=== PATIENT | male | born 1990 | race Caucasian/White ===

== ENCOUNTER 2017-01-16 16:41 | Emergency (ER) | payer MEDICAID ==
[~2017-01-16] VITALS: Ht 177.8 cm; Wt 79.0 kg
[2017-01-16 16:47] VITALS: BP 145/84
== END 2017-01-16 17:40 | disposition left against medical advice (07) ==
LOC: ER 16:41
DX: R07.81 Pleurodynia (principal); Z53.21 Procedure and treatment not carried out due to patient leaving prior to being seen by health care provider

== ENCOUNTER 2017-02-08 15:44 | Emergency (ER) | payer MEDICAID ==
[~2017-02-08] VITALS: Ht 175.3 cm; Wt 86.0 kg
[2017-02-08] MEDS ORDERED: METHYLPREDNISOLONE 4MG TABLET PO ONE (16:15)
[2017-02-08] MEDS ORDERED: DIPHENHYDRAMINE 50MG/ML VIAL IV ONE (16:15)
[2017-02-08 17:00] VITALS: BP 137/87
== END 2017-02-08 18:08 | disposition home or self-care (01) ==
LOC: ER 15:44
DX: T78.2XXA Anaphylactic shock, unspecified, initial encounter (principal); T63.441A Toxic effect of venom of bees, accidental (unintentional), initial encounter; Y92.89 Other specified places as the place of occurrence of the external cause
CPT/HCPCS: 96374; 99284; J1200; Z7610; J7509

== ENCOUNTER 2018-08-27 10:34 | Emergency (ER) | payer MEDICAID ==
[~2018-08-27] VITALS: Ht 177.8 cm; Wt 86.0 kg
[2018-08-27 11:26] VITALS: BP 134/79
== END 2018-08-27 14:59 | disposition left against medical advice (07) ==
LOC: ER 10:34
DX: R07.0 Pain in throat (principal); Z53.21 Procedure and treatment not carried out due to patient leaving prior to being seen by health care provider

== ENCOUNTER 2018-09-06 00:15 | Emergency (ER) | payer MEDICAID ==
[~2018-09-06] VITALS: Ht 177.8 cm; Wt 86.2 kg
[2018-09-06 05:05] VITALS: BP 138/70
== END 2018-09-06 05:16 | disposition home or self-care (01) ==
LOC: ER 00:15
DX: J06.9 Acute upper respiratory infection, unspecified (principal); B35.4 Tinea corporis; Z91.030 Bee allergy status
CPT/HCPCS: 71045; 99283

== ENCOUNTER 2019-04-02 22:59 | Emergency (ER) | payer MEDICAID | END 2019-04-03 00:06 | disposition left against medical advice (07) | LOC: ER 22:59 | DX: Z53.21 Procedure and treatment not carried out due to patient leaving prior to being seen by health care provider (principal) ==

== ENCOUNTER 2021-12-29 09:33 | Emergency (ER) | payer MEDICAID ==
[~2021-12-29] VITALS: Ht 175.3 cm; Wt 68.0 kg
[2021-12-29] MEDS ORDERED: IBUPROFEN 600MG TABLET PO ONE (09:45)
[2021-12-29] MEDS ORDERED: AMOXICILLIN/POTASSIUM CLAVULANATE 875/125MG TAB PO ONE (09:45)
[2021-12-29] MEDS ORDERED: TETANUS, DIPHTHERIA, PERTUSSIS VAC/PF 0.5ML (>10YR OLD) IM ONE (10:00)
[2021-12-29 10:12] VITALS: BP 160/100
[2021-12-29] MEDS ORDERED: IBUP-2029 MT (10:47)
[2021-12-29] MEDS ORDERED: AMOX1TAB16 MT (10:47)
== END 2021-12-29 11:13 | disposition home or self-care (01) ==
LOC: ER 09:33
DX: S61.254A Open bite of right ring finger without damage to nail, initial encounter (principal); W54.0XXA Bitten by dog, initial encounter; Y93.89 Activity, other specified; Y92.480 Sidewalk as the place of occurrence of the external cause
CPT/HCPCS: 12001; 73130; 90471; 90715; 99283

== ENCOUNTER 2023-03-06 19:16 | Emergency (ER) | payer MEDICAID ==
[~2023-03-06] VITALS: Ht 170.2 cm; Wt 74.6 kg
[~2023-03-06 19:16] MED LIST: AMOX1TAB16 MT; IBUP-2029 MT
[2023-03-06 19:26] VITALS: BP 139/96; PULSE 73; RESP 18; TEMP 98.4; O2SAT 100
[2023-03-06] MEDS ORDERED: ACETAMINOPHEN 500MG TABLET PO ONE (20:00)
== END 2023-03-06 20:00 | disposition left against medical advice (07) ==
LOC: ER 19:16
DX: S00.83XA Contusion of other part of head, initial encounter (principal); S09.90XA Unspecified injury of head, initial encounter; Y04.0XXA Assault by unarmed brawl or fight, initial encounter; Y93.89 Activity, other specified; Y92.89 Other specified places as the place of occurrence of the external cause; Y99.8 Other external cause status
CPT/HCPCS: 99281